=== PATIENT | male | born 1985 | race Caucasian/White ===

== ENCOUNTER 2017-10-11 20:41 | Emergency (ER) | payer BC ==
--- NOTE | 2017-10-11 21:17 | EDM.PDOC ---
<Lydia Maldonado N - Last Filed: 10/11/17 21:11> ED HPI GENERAL MEDICAL PROBLEM - General Chief Complaint: Abdominal Pain Stated Complaint: L ABDMONAL PAIN Time Seen by Provider: 10/11/17 21:00 - History of Present Illness INITIAL COMMENTS - FREE TEXT/NARRATIVE: Leno is an otherwise healthy 32-year-old male who presents to the ER with complaints of LLQ abdominal pain which began this afternoon. States he was bending over when the pain initially began. He took 3-4 ibuprofen, and felt that the pain resolved. However, after several hours he experienced sharp pain in his abdomen with radiation to his left flank. He rates the pain at a 3-4/10 presently, and describes it as both aching and sharp in nature. The pain has been slowly reducing since that time. He did experience nausea without emesis when the pain initially began, but denies other associated symptoms. No fevers, chills, constipation, diarrhea, or urinary complaints. Left Lower Abdomen Pain Score (Numeric/FACES): 5 - Related Data Allergies Allergy/AdvReac Type Severity Reaction Status Date / Time No Known Allergies Allergy Verified 10/11/17 20:55 Home Meds: Home Meds NK [No Known Home Meds] 10/11/17 [History] Past Medical History - Past Health History Medical/Surgical History: Denies Medical/Surgical History Social & Family History - Tobacco Use Smoking Status *Q: Never Smoker - Caffeine Use Caffeine Use: Reports: None - Recreational Drug Use Recreational Drug Use: No ED ROS GENERAL - Review of Systems Review Of Systems: See Below Constitutional: Reports: No Symptoms. Denies: Fever, Chills, Malaise, Weakness , Decreased Appetite, Weight Loss HEENT: Reports: No Symptoms Respiratory: Reports: No Symptoms. Denies: Shortness of Breath Cardiovascular: Reports: No Symptoms. Denies: Chest Pain Endocrine: Reports: No Symptoms GI/Abdominal: Reports: Abdominal Pain, Nausea. Denies: Constipation, Diarrhea, Decreased Appetite, Vomiting : Reports: Flank Pain. Denies: Dysuria, Frequency, Hematuria, Urgency Musculoskeletal: Reports: No Symptoms Skin: Reports: No Symptoms Neurological: Reports: No Symptoms Psychiatric: Reports: No Symptoms Hematologic/Lymphatic: Reports: No Symptoms Immunologic: Reports: No Symptoms ED EXAM, GI/ABD - Physical Exam Exam: See Below Exam Limited By: No Limitations General Appearance: Alert, WD/WN, No Apparent Distress Ears: Normal External Exam, Normal Canal, Hearing Grossly Normal, Normal TMs Nose: Normal Inspection Throat/Mouth: Normal Inspection, Normal Lips, Normal Teeth, Normal Gums, Normal Voice, No Airway Compromise Head: Atraumatic Neck: Normal Inspection, Supple, Non-Tender Respiratory/Chest: No Respiratory Distress, Lungs Clear, Normal Breath Sounds, Chest Non-Tender Cardiovascular: Normal Peripheral Pulses, Regular Rate, Rhythm, No JVD, No Murmur, No Rub GI/Abdominal Exam: Normal Bowel Sounds, Soft, Non-Tender, No Distention (Male) Exam: Deferred Rectal (Males) Exam: Deferred Back Exam: CVA Tenderness (L) Neurological: Alert, Oriented, Normal Cognition, No Motor/Sensory Deficits Psychiatric: Normal Affect, Normal Mood Skin Exam: Warm, Dry, Intact Lymphatic: No Adenopathy Course - Vital Signs Last Recorded V/S: Last Vital Signs Temp 35.8 C 10/11/17 20:51 Pulse 77 10/11/17 20:51 Resp 16 10/11/17 20:51 BP 156/93 H 10/11/17 20:51 Pulse Ox 98 10/11/17 20:51 - Orders/Labs/Meds Orders: Active Orders 24 hr Category Date Time Status Kidney Stone Protocol [CT] Stat Exams 10/11/17 22:42 Taken UA W/MICROSCOPIC [URIN] Stat Lab 10/11/17 22:10 Ordered Labs: Laboratory Tests 10/11/17 10/11/17 10/11/17 Range/Units 21:07 21:07 22:10 WBC 7.5 (4.5-11.0) K/uL RBC 4.91 (4.30-5.90) M/uL Hgb 14.4 (12.0-15.0) g/dL Hct 43.5 (40.0-54.0) % MCV 89 (80-98) fL MCH 29 (27-31) pg MCHC 33 (32-36) % Plt Count 180 (150-400) K/uL Sodium 144 (140-148) mmol/L Potassium 4.1 (3.6-5.2) mmol/L Chloride 107 (100-108) mmol/L Carbon Dioxide 30 (21-32) mmol/L Anion Gap 7.5 (5.0-14.0) mmol/L BUN 20 H (7-18) mg/dL Creatinine 1.2 (0.8-1.3) mg/dL Est Cr Clr Drug Dosing 95.20 mL/min Estimated GFR (MDRD) > 60 (>60) Glucose 110 H (74-106) mg/dL Calcium 8.3 L (8.5-10.1) mg/dL Urine Color Yellow Urine Appearance Cloudy Urine pH 7.0 (4.5-8.0) Ur Specific [place] 1.015 (1.008-1.030) Urine Protein Negative (NEGATIVE) mg/dL Urine Glucose (UA) Normal (NEGATIVE) mg/dL Urine Ketones 15 H (NEGATIVE) mg/dL Urine Occult Blood Large (NEGATIVE) Urine Nitrite Negative (NEGAITVE) Urine Bilirubin Negative (NEGATIVE) Urine Urobilinogen Normal (NORMAL) mg/dL Ur Leukocyte Esterase Negative (NEGATIVE) Urine RBC 30-40 H (0-5) Urine WBC 0-5 (0-5) Ur Epithelial Cells Not seen Amorphous Sediment Not seen Urine Bacteria Not seen Urine Mucus Few Meds: Medications Discontinued Medications Generic Name Dose Route Start Last Admin Trade Name Freq PRN Reason Stop Dose Admin Tamsulosin HCl 0.4 mg 10/11/17 23:32 10/11/17 23:38 Flomax PO 10/11/17 23:33 0.4 mg ONETIME ONE Administration Departure - Departure Disposition: Home, Self-Care 01 Clinical Impression: Renal stone - Discharge Information Instructions: Kidney Stones, [id number] Referrals: PCP,None [Primary Care Provider] - Forms: ED Department Discharge Additional Instructions: You have been evaluated and treated for a renal stone (kidney stone). You can take toradol (anti-inflammatory) for pain as directed. Take tamsulosin (flomax) 0.4mg PO daily for 14 days to help with pain. Drink plenty of fluids (water, gatorade). Use a strainer with urination. Follow up with primary care provider in 7 to 10 days. Return to the emergency room for worsening, issues or concerns. - My Orders Last 24 Hours: My Active Orders 10/11/17 22:42 Kidney Stone Protocol [CT] Stat - Assessment/Plan Last 24 Hours: My Active Orders 10/11/17 22:42 Kidney Stone Protocol [CT] Stat <Melonie Mon - Last Filed: 10/11/17 23:48> ED HPI GENERAL MEDICAL PROBLEM - General Source of Information: Reports: Patient, Family History Limitations: Reports: No Limitations Course - Orders/Labs/Meds Labs: Laboratory Tests 10/11/17 10/11/17 10/11/17 Range/Units 21:07 21:07 22:10 WBC 7.5 (4.5-11.0) K/uL RBC 4.91 (4.30-5.90) M/uL Hgb 14.4 (12.0-15.0) g/dL Hct 43.5 (40.0-54.0) % MCV 89 (80-98) fL MCH 29 (27-31) pg MCHC 33 (32-36) % Plt Count 180 (150-400) K/uL Sodium 144 (140-148) mmol/L Potassium 4.1 (3.6-5.2) mmol/L Chloride 107 (100-108) mmol/L Carbon Dioxide 30 (21-32) mmol/L Anion Gap 7.5 (5.0-14.0) mmol/L BUN 20 H (7-18) mg/dL Creatinine 1.2 (0.8-1.3) mg/dL Est Cr Clr Drug Dosing 95.20 mL/min Estimated GFR (MDRD) > 60 (>60) Glucose 110 H (74-106) mg/dL Calcium 8.3 L (8.5-10.1) mg/dL Urine Color Yellow Urine Appearance Cloudy Urine pH 7.0 (4.5-8.0) Ur Specific [place] 1.015 (1.008-1.030) Urine Protein Negative (NEGATIVE) mg/dL Urine Glucose (UA) Normal (NEGATIVE) mg/dL Urine Ketones 15 H (NEGATIVE) mg/dL Urine Occult Blood Large (NEGATIVE) Urine Nitrite Negative (NEGAITVE) Urine Bilirubin Negative (NEGATIVE) Urine Urobilinogen Normal (NORMAL) mg/dL Ur Leukocyte Esterase Negative (NEGATIVE) Urine RBC 30-40 H (0-5) Urine WBC 0-5 (0-5) Ur Epithelial Cells Not seen Amorphous Sediment Not seen Urine Bacteria Not seen Urine Mucus Few Patient lab work reviewed with him. We will complete a CT with renal stone protocol. Meds: Medications Discontinued Medications Generic Name Dose Route Start Last Admin Trade Name Freq PRN Reason Stop Dose Admin Tamsulosin HCl 0.4 mg 10/11/17 23:32 10/11/17 23:38 Flomax PO 10/11/17 23:33 0.4 mg ONETIME ONE Administration - Radiology Interpretation CT Results Date: 10/11/17 (CT with renal stone protocol: 4.5 mm mid-left ureteral calculus, well-visualized on coronal reformat series. No significant dilation of the proximal left ureter or left renal collecting system. Normal appendix. ) Departure - Departure Time of Disposition: 23:23 Condition: Good - Discharge Information *PRESCRIPTION DRUG MONITORING PROGRAM REVIEWED*: Yes *COPY OF PRESCRIPTION DRUG MONITORING REPORT IN PATIENT MERRY: Not Applicable - Assessment/Plan Assessment:: Renal stone 4.5mm mid left ureter Plan: Patient evaluated and treated for a renal stone (kidney stone). He can take toradol (anti-inflammatory) for pain as directed. Take tamsulosin (flomax) 0.4mg PO daily for 14 days to help with pain. Drink plenty of fluids (water, gatorade). Use a strainer with urination. Follow up with primary care provider in 7 to 10 days. Return to the emergency room for worsening, issues or concerns.
[2017-10-11] MEDS ORDERED: Tamsulosin 0.4 MG Cap.ER PO ONE (23:32)
== END 2017-10-11 23:40 | disposition home or self-care (01) ==
LOC: JP.ED 20:41
DX: N20.2 Calculus of kidney with calculus of ureter (principal)
CPT/HCPCS: 36415; 74176; 80048; 81001; 85027; 99284; A9270